=== PATIENT | male | born 1985 | race Caucasian/White ===

== ENCOUNTER 2025-06-17 20:56 | Emergency (ER) | payer MEDICAID, SELFPAY ==
[2025-06-17 20:58] VITALS: BP 130/87; PULSE 87; RESP 17; TEMP 37.1; O2SAT 98; BMI 27.4
--- NOTE | 2025-06-17 21:19 | XR_ITS ---
Examination: PA chest single view Technique: Upright PA chest single view Date and time: June 17, 2025 Indications: Chest pain shortness of breath beginning 3 days ago. Findings: Normal heart size. Lungs are clear. The osseous structures are intact. Impression: No active disease.
--- NOTE | 2025-06-17 21:19 | EKG_ITS ---
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
--- NOTE | 2025-06-17 22:11 | PD.EDRME ---
Rapid Medical Screening Exam RME Arrival date/time: 06/17/25 20:56 This is a case of 40-year-old male with history of type 1 diabetes came in in the emergency room due to shortness of breath and chest pain for 2 days patient also stated that for the past 1 week her blood sugar is elevated patient due to persistence of the symptoms now with generalized weakness this patient decided to sought consult in the emergency room Chief Complaint: Shortness of Breath/Dyspnea Time Seen by Provider: 06/17/25 20:59 Vital signs: Vital Signs Temperature 98.7 F 06/17/25 20:58 Pulse Rate 87 06/17/25 20:58 Respiratory Rate 17 06/17/25 20:58 Blood Pressure 130/87 H 06/17/25 20:58 Pulse Oximetry (%) 98 06/17/25 20:58 Oxygen Delivery Method Room Air 06/17/25 20:58
[2025-06-17 22:18] LABS: Base Excess, Venous 5 (-3-3); O2 Saturation, Venous 56 % (96-97); PCO2, Venous 48 mmHg (36-56); PO2, Venous 28 mmHg (15-58); pH, Venous 7.41 (7.33-7.66)
[2025-06-17 22:23] LABS: Basophils # (Auto) 0.1 Thou/mm3 (0.0-0.2); Basophils % (Auto) 1 % (0-2.5); Eosinophils # (Auto) 0.1 Thou/mm3 (0.0-0.5); Eosinophils % (Auto) 1 % (0-10); Hematocrit 43.2 % (41.0-53.0); Hemoglobin 14.4 g/dL (13.5-16.0); Immature Granulocytes Auto 0.02 Thou/mm3 (0.00-0.00); Lymphocytes # (Auto) 1.7 Thou/mm3 (1.0-4.8); Lymphocytes % (Auto) 22 % (10-50); Mean Corpuscular HGB Conc 33.3 g/dl (31.0-37.0); Mean Corpuscular Hemoglobin 27.7 pg (25.0-35.0); Mean Corpuscular Volume 83 fL (80-100); Monocytes # (Auto) 0.4 Thou/mm3 (0.0-0.8); Monocytes % (Auto) 6 % (0-12); Neutrophils # (Auto) 5.3 Thou/mm3 (1.8-7.7); Neutrophils % (Auto) 70 % (37-80); Nucleated Red Blood Cell # 0.00 Thou/mm3 (0.00-0.00); Nucleated Red Blood Cell % 0 /100 WBC (0); Platelet Count 255 Thou/mm3 (140-440); RDW Standard Deviation 36.2 fL (35.1-43.9); Red Blood Count 5.19 Miln/mm3 (4.50-5.90); White Blood Count 7.6 Thou/mm3 (3.8-10.6)
[2025-06-17 22:25] LABS: Collection Type, Urine Clean Catch
[2025-06-17 22:33] LABS: Bilirubin,Urine Negative (Negative); Blood,Urine Negative (Negative); Clarity,Urine Clear (Clear/Hazy); Color,Urine Lt-Yellow (Lt Yel-Yel); Glucose, Urine 4+ (Negative); Ketones,Urine Negative (Negative); Leukocyte Esterase,Urine Negative (Negative); Nitrite,Urine Negative (Negative); PH,Urine 5.5 (5.0-7.0); Protein,Urine Negative (Neg - Trace); RBC,Urine 1 /hpf (0-3); Specific Gravity,Urine 1.024 (1.001-1.035); Squamous Epithelial Cell,Urine < 1 /hpf (0-5); Urobilinogen,Urine Negative mg/dL (0.0-1.0); WBC,Urine 2 /hpf (0-5)
[2025-06-17 22:41] LABS: Alanine Aminotransferase 14 U/L (10-49); Albumin, Serum 4.4 gm/dL (3.5-5.0); Albumin/Globulin Ratio 2.0 (1.2-2.2); Alkaline Phosphatase 42 U/L (46-116); Anion Gap 9 (7-16); Aspartate Amino Transferase 13 U/L (0-34); BUN/Creatinine Ratio 11 Ratio (12-20); Bilirubin,Total 0.8 mg/dL (0.3-1.2); Blood Urea Nitrogen 11 mg/dL (9-23); Calcium 10.0 mg/dL (8.3-10.6); Calcium (Corrected) 10.0 mg/dL (8.5-10.1); Carbon Dioxide 29.3 mMol/L (20.0-31.0); Chloride 101 mMol/L (98-107); Creatinine (Component) 1.0 mg/dL (0.6-1.3); Estimated Creatinine Clearance 112.1 mL/min (>60); Globulin 2.2 gm/dL (2.3-3.5); Glucose 252 mg/dL (74-106); Osmolality,Calculated 285 (275-295); Potassium 4.0 mMol/L (3.4-5.1); Sodium 139 mMol/L (136-145); Total Protein 6.6 gm/dL (5.7-8.2); Troponin I < 0.002 ng/mL (0.0-0.045); eGFR > 60 See Note
[2025-06-17 22:43] LABS: B-Type Natriuretic Peptide < 20 pg/mL (0-100); D-Dimer < 250 ng/mL (<600)
--- NOTE | 2025-06-17 23:57 | PD.EDSOB ---
ED SOB =RME/HPI General Chief Complaint: Shortness of Breath/Dyspnea Stated Complaint: DIFFICULTY BREATHING Time Seen by Provider: 06/17/25 20:59 Arrival date/time: 06/17/25 20:56 RME / HPI RME / HPI Narrative: 06/17/25 20:56 This is a case of 40-year-old male with history of type 1 diabetes came in in the emergency room due to shortness of breath and chest pain for 2 days patient also stated that for the past 1 week her blood sugar is elevated patient due to persistence of the symptoms now with generalized weakness this patient decided to sought consult in the emergency room DR. GOLDMAN MAIN ED EVALUATION: 40 y/o male with Hx of Type I DM and DKA presents to ED c/o shortness of breath x 2 days. Patient states that even when taking deep breaths he still does not feel as if it is enough. Questionable Hx of Asthma. Denies any wheezing or new stresses. No other concerns or complaints expressed at this time. Related Data Home Medications ?Medication ?Instructions ?Recorded ?Confirmed gabapentin 300 mg capsule 300 mg PO QDAY 03/18/19 03/18/19 insulin glargine 100 unit/mL (3 20 unit subcut HS 03/18/19 03/18/19 mL) subcutaneous pen (Basaglar KwikPen U-100 Insulin) insulin glargine 100 unit/mL (3 See Rx Instructions .Route .COMPLEX 03/18/19 03/18/19 mL) subcutaneous pen (Basaglar KwikPen U-100 Insulin) insulin lispro 100 unit/mL 1 sliding scale dose subcut 03/18/19 03/18/19 subcutaneous solution (Humalog USEASDIRECTD U-100 Insulin) Previous Rx's ?Medication ?Instructions ?Recorded albuterol sulfate 90 mcg/actuation 2 puff inhalation QID SOB #18 03/18/19 aerosol inhaler grams cetirizine 10 mg tablet (All Day 10 mg PO QDAY PRN allergy symptoms 03/18/19 Allergy Relief (cetirizine)) #30 tabs sodium chloride 0.65 % nasal spray 2 spray intranasal QID #60 mL 03/18/19 aerosol (Saline Nasal) ondansetron 4 mg disintegrating 4 mg PO Q8H PRN nausea and 10/24/19 tablet vomiting #10 tabs acetaminophen 650 mg 650 mg PO Q8H PRN fever or pain 06/24/22 tablet,extended release #30 tabs ibuprofen 600 mg tablet 600 mg PO Q8H PRN fever or pain 06/24/22 #30 tabs neomycin-bacitracn Zn-polymyx 3.5 1 applicatio topical BID #15 grams 06/24/22 mg-400 unit-5,000 unit/gram top oint (Triple Antibiotic) albuterol sulfate 90 mcg/actuation 2 inh inhalation Q4H PRN shortness 06/18/25 breath activated powder inhaler of breath #1 ea Allergies Allergy/AdvReac Type Severity Reaction Status Date / Time shellfish derived Allergy Severe Swelling Verified 06/17/25 21:04 of Lip/Tongue/Throat Review of Systems Review of Systems Systems Reviewed: All systems reviewed, normal except as documented Past Medical History Past Medical History RESPIRATORY: Positive Asthma GASTROINTESTINAL: Positive Pancreatitis ENDOCRINE: Positive Endocrine Disorders and Diabetes Mellitus Type 1 ED Exam Narrative Physical exam: Generally patient is alert in no obvious distress and not dyspneic, heart regular rate and rhythm, lungs clear to auscultation equal bilaterally, abdomen soft bowel sounds present nondistended nontender, extremities show no edema, neurologic exam Estelle Coma Scale is 15 Course Course Course Narrative: CXR was ordered for determining the etiology of shortness of breath. Quality Measures none Orders Category Date Time Status EKG (ED ONLY) *Do not use* NOW Care 06/17/25 21:19 Completed EKG (ED Only) Stat Exams 06/17/25 21:19 Draft XR chest 1V portable Stat Exams 06/17/25 21:19 Completed BNP [B-Type Natriuretic Peptide] Stat Lab 06/17/25 21:58 Completed CBC Stat Lab 06/17/25 21:58 Completed Comprehensive Metabolic Panel Stat Lab 06/17/25 21:58 Completed D-Dimer Stat Lab 06/17/25 21:58 Completed Troponin I Stat Lab 06/17/25 21:58 Completed Urinalysis Stat Lab 06/17/25 21:55 Completed Venous Blood Gas Stat Lab 06/17/25 21:58 Completed Vital Signs Vital signs: Vital Signs Temperature 98.7 F 06/17/25 20:58 Pulse Rate 87 06/17/25 20:58 Respiratory Rate 17 06/17/25 20:58 Blood Pressure 130/87 H 06/17/25 20:58 Pulse Oximetry (%) 98 06/17/25 20:58 Oxygen Delivery Method Room Air 06/17/25 20:58 Shortness of Breath / Dyspnea MDM Narrative MDM Narrative:: Scribe Attestation: I, Agueda Roberts, am scribing for and in the presence of Dr. Goldman. Provider Notation: Although this document has been carefully reviewed, there may still be some phonetic and other typographical errors. These errors are purely grammatical due to imperfections in the software program and should not be construed in any way to compromise the substance of the patient's medical care during this visit. Differential diagnosis, pleural effusion, asthma, pneumonia, viral syndrome, acute coronary syndrome, pulmonary embolism, diabetic ketoacidosis Patient is not in diabetic ketoacidosis. I interpreted all labs. D-dimer is not elevated. Chest x-ray is clear. Troponin is not elevated. EKG is nonischemic. Patient will be given a prescription for albuterol to be used as needed. He may follow-up with his doctor for further treatment and evaluation. Return to ER as needed or if condition worsens. Patient data External records reviewed:: [facility] previous records (Reviewed prior ED records from 06/27/24. Patient was seen for Dehydration.) Clinical information provided by:: patient Social determinants that could affect healthcare access:: none Patient has the following chronic illnesses:: Type I DM, Asthma, Pancreatitis How is presenting disease/condition affected by chronic disease/condition?: exacerbated by Evaluation data The following diagnostics were reviewed and interpreted by me:: lab results, radiology exam(s) and EKG tracing(s) Lab and/or radiology exams considered but not ordered:: None Interpretation Summary: RADIOLOGY Chest X-Ray: Findings: Normal heart size. Lungs are clear. The osseous structures are intact. Impression: No active disease Medications / Prescriptions Medications or Prescriptions considered but not ordered:: None Medication administrations:: See above if any. Consultations Consultation(s) initiated? (list below): No Diagnosis Shortness of Breath Differential Diagnosis: congestive heart failure, community acquired pneumonia, asthma with exacerbation and pulmonary embolism Most likely diagnosis given after review of the tests above:: none Admission Indicated Admission indicated?: not indicated Explain why admission is indicated or not indicated:: Patient does not meet admission criteria. Admission Request Was there a request for admission?: No Disposition Plan Disposition Plan: Discharge Discharge Attestation Discharge Attestation: The patient and all family members were given an opportunity to ask questions and understood the discharge instructions. Discharge instructions specifically effects, indications for sooner follow up or return to the emergency department, and the expected course of current diagnosis. Patient condition: Stable Discharge Plan Plan Patient Disposition: HOME (Self Care) Prescriptions/Referrals Prescriptions/Med Rec: New albuterol sulfate 90 mcg/actuation aerosol powdr breath activated 2 inh inhalation Q4H PRN (Reason: shortness of breath) Qty: 1 0RF No Action albuterol sulfate 90 mcg/actuation HFA aerosol inhaler 2 puff INH QID Qty: 18 0RF cetirizine [All Day Allergy Relief(cetir)] 10 mg tablet 10 mg PO QDAY PRN (Reason: allergy symptoms) Qty: 30 0RF sodium chloride [Saline Nasal] 0.65 % aerosol,spray 2 spray INTRANASAL QID Qty: 60 0RF insulin lispro [Humalog U-100 Insulin] 100 unit/mL Solution 1 sliding scale dose SUBCUT USEASDIRECTD Basaglar KwikPen U-100 Insulin 100 unit/mL (3 mL) Insulin Pen See Rx Instructions .ROUTE .COMPLEX Rx Instructions: 35 unit subcutaneously in the morning Basaglar KwikPen U-100 Insulin 100 unit/mL (3 mL) Insulin Pen 20 unit SUBCUT HS gabapentin 300 mg Capsule 300 mg PO QDAY ondansetron 4 mg tablet,disintegrating 4 mg PO Q8H PRN (Reason: nausea and vomiting) Qty: 10 0RF Triple Antibiotic 3.5mg-400 unit- 5,000 unit/gram ointment 1 applicatio TOPICAL BID Qty: 15 0RF acetaminophen 650 mg tablet extended release 650 mg PO Q8H PRN (Reason: fever or pain) Qty: 30 0RF Rx Instructions: swallow whole; do not chew/break/dissolve/open ibuprofen 600 mg tablet 600 mg PO Q8H PRN (Reason: fever or pain) Qty: 30 0RF 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 Follow-up with your doctor for further treatment and evaluation. Print Language: Macedonian Stand Alone Forms: Heather Award Info., Patient Portal Info Letter
[2025-06-17 23:58] VITALS: BP 130/80; PULSE 74; RESP 20; TEMP 37; O2SAT 100
== END 2025-06-18 00:51 | disposition home or self-care (01) ==
PROVIDERS: Nurse Practitioner Family; Emergency Provider Emergency Medicine; PCP Nurse Practitioner Family
DX: R06.00 Dyspnea, unspecified (principal); I49.8 Other specified cardiac arrhythmias
CPT/HCPCS: 36415; 71045; 80053; 81001; 82803; 83880; 84484; 85025; 85379; 93005; 99283